=== PATIENT | female | born 1970 | race Caucasian/White ===

== ENCOUNTER → 2016-06-25 | Outpatient (CLI) | payer OTHER ==
--- NOTE | 2016-06-25 09:24 | MRI ---
EXAM DESCRIPTION: Brain MRI. CLINICAL HISTORY: Headache. COMPARISON: None. TECHNIQUE: Multiplanar, multisequence MR images were acquired with and without IV contrast. FINDINGS: The midline structures are unremarkable on today's study. Gradient sequences reveal no evidence of blood degradation products. There are small scattered foci of abnormal FLAIR hyperintensity throughout the bihemispheric deep and periventricular white matter, a nonspecific finding which can be seen in the setting of both chronic migraine headaches and mild microvascular disease. No intracranial mass effect, hydrocephalus, midline shift, hemorrhage, extra-axial fluid collection, abnormal vascular flow void, or restricted diffusion is seen. Calvarial signal is intact. Paranasal sinuses and the mastoid air cells appear clear. Orbits are within normal limits. IMPRESSION: There are a few T2 hyperintensities on today's study. These can be seen in setting of migraine headaches. No abnormal enhancement. No evidence of chronic microvascular ischemic disease or mass noted. Electronically signed by: Sergio Rios MD 06/25/2016 09:22
== END ==
LOC: MRI 07:47
PROVIDERS: ATTEND Family Medicine
DX: R51 Headache (principal)

== ENCOUNTER → 2016-07-11 | Outpatient (CLI) | payer OTHER | END | disposition home or self-care (01) | LOC: LAB.O 11:27 | PROVIDERS: ATTEND Psychiatry & Neurology Neurology | DX: M47.897 Other spondylosis, lumbosacral region (principal); F90.9 Attention-deficit hyperactivity disorder, unspecified type; M33.90 Dermatopolymyositis, unspecified, organ involvement unspecified; H46.9 Unspecified optic neuritis; M35.00 Sjogren syndrome, unspecified; M32.10 Systemic lupus erythematosus, organ or system involvement unspecified; M31.6 Other giant cell arteritis; M54.12 Radiculopathy, cervical region; M54.16 Radiculopathy, lumbar region ==

== ENCOUNTER → 2016-09-10 | Outpatient (CLI) | payer OTHER ==
--- NOTE | 2016-09-11 10:24 | MAM ---
History: Well woman exam. Date of exam: 09/10/2016 Services provided: Bilateral full field digital screening mammography. CAD, the images were reviewed with R2 computer aided detection. FINDINGS: Glandular tissue is scattered glandular pattern. Comparison with 2012 exam. No dominant mass, architectural distortion or clustered microcalcification. IMPRESSION: Benign exam Recommendation: Routine annual mammography BIRAD CATEGORY: 2 BENIGN FINDINGS NEGATIVE Electronically signed by: Bing Murrell MD 09/11/2016 10:22 AM CDT
== END | disposition home or self-care (01) ==
LOC: MAMMO 09:21
PROVIDERS: ATTEND Family Medicine
DX: Z12.31 Encounter for screening mammogram for malignant neoplasm of breast (principal)

== ENCOUNTER 2017-06-13 16:54 | Emergency (ER) | payer OTHER ==
[2017-06-13 17:12] VITALS: O2SAT 97
[2017-06-13 17:17] VITALS: TEMP 99.1
--- NOTE | 2017-06-13 17:22 | ED.PDOC ---
History of Present Illness - General Chief Complaint: Back Pain or Injury Stated Complaint: low back injury Time Seen by Provider: 06/13/17 17:18 Source: patient Exam Limitations: no limitations - History of Present Illness Initial Comments: Mansoor Gleason 46 y/o female seen today with low backpain when she tripped on her pig and fell on her back had taken muscle relaxant and placed heating pad but sharp left sided back pain pain got worse after she carried fire wood yesterday.No head/neck /hip pain.No bowel or bladder dysfunction Timing/Duration: days - 7 Quality/Severity: sharpness Back Pain Location: lumbar spine Back Pain Radiation: upper legs Method of Injury/Prior Injury: fell - on her back Allergies/Adverse Reactions: Allergies Sulfa Antibiotics Allergy (Verified 12/02/14 13:00) Vomitting makes her feel "like she wants to claw herself from the inside out" Home Medications: Ambulatory Orders Phentermine HCl 37.5 mg PO DAILY 12/02/14 Review of Systems - Review of Systems Constitutional: States: no symptoms reported EENTM: States: no symptoms reported Respiratory: States: no symptoms reported Cardiology: States: no symptoms reported Gastrointestinal/Abdominal: States: no symptoms reported Musculoskeletal: States: see HPI, back pain Past Medical History (General) - Patient Medical History Hx Stroke: No Hx Congestive Heart Failure: No Hx Diabetes: No 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 Surgical History: other - excision sweat glands - Vaccination History Hx Tetanus, Diphtheria Vaccination: Yes - 2011 Hx Influenza Vaccination: No - Social History Hx Tobacco Use: Yes - quit 09/2014 - Activities of Daily Living Grooming Ability: Independent Eating (Feeding) Ability: Independent Toileting Ability: Independent Family Medical History - Family History Mother Living Status: Still Living Hx Family Hypertension: Yes Hx Family Stroke: Yes Hx Family Diabetes: Yes Hx Family Cancer: Yes - Colon Physical Exam - Physical Exam General Appearance: Alert, Comfortable, No apparent distress Eyes, Ears, Nose, Throat Exam: normal ENT inspection Neck Exam: non-tender, normal alignment Cardiovascular/Respiratory: regular rate, rhythm, no M/R/G, normal peripheral pulses, normal breath sounds Peripheral Pulses: radial,right: 2+, radial,left: 2+ Gastrointestinal/Abdominal: non tender, soft, no organomegaly Back Exam: no vertebral tenderness, muscle spasm - lumbar muscle Extremity Exam: no evidence of injury, non-tender, no pedal edema Neurologic: no motor/sensory deficits, other - negative straight leg rasing test left leg Skin Exam: normal color, warm/dry Progress - Progress Progress: 06/13/17 17:25 Last Vital Signs Temp 99.1 F 06/13/17 17:09 Pulse 72 06/13/17 17:09 Resp 20 06/13/17 17:09 BP 128/85 06/13/17 17:09 Pulse Ox 97 06/13/17 17:09 Departure - Departure Clinical Impression: Muscle spasm Low back pain Qualifiers: Chronicity: unspecified Back pain laterality: left Sciatica presence: without sciatica Qualified Code(s): M54.5 - Low back pain Time of Disposition: 17:29 Disposition: Discharge to Home or Self Care Condition: Fair Departure Forms: ED Discharge - Pt. Copy, Patient Portal Self Enrollment Instructions: DI for Low Back Pain Referrals: KEVIN VIERA [Primary Care Provider] - 1-2 Weeks Home Medications: Ambulatory Orders Phentermine HCl 37.5 mg PO DAILY 12/02/14 Additional Instructions: Follow up with primary Md 06/16/2017 call for appointment;Continue with all home medications
[2017-06-13] MEDS ORDERED: ORPHENADRINE CITRATE 30 MG/ML AMP IM ONE (17:27)
[2017-06-13] MEDS ORDERED: KETOROLAC TROMETHAMINE INJ 30 MG/ML VIAL IM ONE (17:27)
[2017-06-13 18:26] VITALS: BP 134/80
== END 2017-06-13 18:20 | disposition home or self-care (01) ==
LOC: ER 16:54
DX: M54.5 Low back pain (principal); M62.838 Other muscle spasm
CPT/HCPCS: J1885; J2360

== ENCOUNTER 2019-03-01 21:26 | Emergency (ER) | payer BC ==
[2019-03-01] MEDS ORDERED: ASPIRIN TABLET 325 MG TAB PO ONE (21:49)
[2019-03-01] MEDS: HYDROcodone 7.5MG/APAP 325MG 1 EA TAB PO ONE ×2 (22:00→22:02)
[2019-03-01] MEDS ORDERED: ALUM & MAG HYDROX-SIMETHICONE 30 ML, LIDOCAINE VISCOUS 2% 15 ML PO ONE ×2 (22:44)
[2019-03-01] MEDS ORDERED: ALUM & MAG HYDROX-SIMETHICONE 30 ML UD ONE (22:48)
[2019-03-01] MEDS ORDERED: LIDOCAINE HCL 2% (MOUTH-THROAT) 15 ML UD ONE (22:48)
--- NOTE | 2019-03-01 23:05 | RAD ---
EXAM: Single view chest. INDICATION: Chest pain. COMPARISON: Chest x-ray: 08/12/2011. FINDINGS: Cardiac silhouette: Unremarkable. Merlyn: Unremarkable. Lobar consolidation: None. Pleural effusion: None. Pneumothorax: None. Other: None. Bones: Unremarkable. Other: None. IMPRESSION: 1. No acute cardiopulmonary process. Electronically signed by: Nabil Major MD 03/01/2019 11:04 PM CDT
--- NOTE | 2019-03-02 01:26 | ED.PDOC ---
History of Present Illness - General Chief Complaint: Chest Pain/NM Stated Complaint: chest pressure Time Seen by Provider: 03/01/19 21:29 Source: patient Exam Limitations: no limitations - History of Present Illness Initial Comments: the patient is a 48-year-old female presenting to the emergency room secondary to chest discomfort that started about 3 hours prior to arrival. Chest discomfort is a little more on the left than the right. It is largely reproducible with palpation of the pectoralis muscle. It has made a little worse with attempting to sit up as well as taking a deep breath. It is not worse with exertion otherwise. No shortness of breath. The patient has been having some chronic abdominal pain and did have a CT scan of her abdomen and pelvis done today but she does not know the result of it. It was done at an outside hospital who is unable to access her report overnight. No fevers. No vomiting. No syncope or near syncope. The patient is pleasant and cooperative and does not appear to be in distress. Timing/Duration: 1-3 hours Severity: mild Improving Factors: immobilization Worsening Factors: movement Associated Symptoms: chest pain Allergies/Adverse Reactions: Allergies Sulfa Antibiotics Allergy (Verified 12/02/14 13:00) Vomitting makes her feel "like she wants to claw herself from the inside out" Home Medications: Ambulatory Orders Aripiprazole 03/01/19 Cyclobenzaprine HCl [Flexeril] 10 mg PO 03/01/19 Escitalopram Oxalate 03/01/19 Levothyroxine Sodium 03/01/19 Meloxicam 03/01/19 Methotrexate Sodium [Methotrexate] 03/01/19 Propranolol HCl [Inderal] 20 mg PO 03/01/19 Vortioxetine HBr [Trintellix] 03/01/19 cloNAZepam [Klonopin] 03/01/19 Review of Systems - Review of Systems Constitutional: States: no symptoms reported EENTM: States: no symptoms reported Respiratory: States: no symptoms reported Cardiology: States: chest pain Gastrointestinal/Abdominal: States: no symptoms reported Genitourinary: States: no symptoms reported Musculoskeletal: States: see HPI Skin: States: no symptoms reported Neurological: States: anxiety Endocrine: States: no symptoms reported All other Systems: No Change from Baseline Past Medical History (General) - Patient Medical History Hx Stroke: No Hx Congestive Heart Failure: No Hx Diabetes: No 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 - Vaccination History Hx Tetanus, Diphtheria Vaccination: Yes - 2011 Hx Influenza Vaccination: No Hx Pneumococcal Vaccination: No - Social History Hx Tobacco Use: Yes - quit 09/2014 Family Medical History - Family History Mother Living Status: Still Living Hx Family Hypertension: Yes Hx Family Stroke: Yes Hx Family Diabetes: Yes Hx Family Cancer: Yes - Colon Physical Exam - Physical Exam General Appearance: Alert, Anxious, No apparent distress Eye Exam: bilateral normal Ears, Nose, Throat: hearing grossly normal, normal ENT inspection Neck: full range of motion, supple Respiratory: lungs clear, normal breath sounds, no respiratory distress, no accessory muscle use, other - chest wall is tender as above Cardiovascular/Chest: normal peripheral pulses, no edema, other - regular rate Peripheral Pulses: radial,right: 2+, radial,left: 2+ Gastrointestinal/Abdominal: soft, other - the patient does have a fused abdominal discomfort palpation. No real point tenderness. No rebound or peritoneal signs. 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 it seems to be more likely musculoskeletal given the physical exam. 2 sets of cardiac enzymes were performed and were negative. EKG and chest x-ray were reassuring. the patient is resting comfortably. She should follow-up with her primary care doctor towards the end of the week. The patient does have a history of significant reflux symptoms. She should consider taking a daily [id number] Nexium to help reduce long-term complications of this. the patient also needs to follow up with her primary care doctor tomorrow to obtain the results of her abdominal CT scan. We were unable to obtain results for her tonight. ER warnings were given for any worsening. 03/02/19 02:02 mandie hart [id number] 03/02/19 02:03 - Results/Orders Results/Orders: chest x-ray shows no acute processes. EKG shows normal sinus rhythm at 76 bpm. Normal axis. No ST segment or T-wave changes indicative of acute ischemia. Normal QT interval. Normal R-wave progression. Normal axis. 03/01/19 21:48 Telemetry .CONTINUOUS 03/01/19 22:00 EKG STAT 03/02/19 01:20 CARDIAC [employer] Stat Laboratory Results - last 24 hr 03/01/19 03/01/19 03/01/19 22:07 22:07 22:07 WBC 5.9 RBC 5.23 Hgb 11.2 L Hct 35.0 L MCV 67.1 L MCH 21.4 L MCHC 31.9 L RDW 16.0 H Plt Count 272 MPV 9.3 Absolute Neuts (auto) 3.20 Absolute Lymphs (auto) 2.00 Absolute Monos (auto) 0.40 Absolute Eos (auto) 0.20 Absolute Basos (auto) 0.10 Neutrophils % 54.6 Lymphocytes % 34.9 Monocytes % 6.1 Eosinophils % 3.4 Basophils % 1.0 Normal RBC Morphology 1+ovalocytes PT 9.6 INR 0.96 PTT (SP) 25.7 Sodium 141 Potassium 3.7 Chloride 106 Carbon Dioxide 25 Anion Gap 13.7 BUN 8 Creatinine 0.67 BUN/Creatinine Ratio 11.9 Random Glucose 111 H Serum Osmolality 280.3 Lactic Acid Calcium 9.4 Magnesium 2.1 Total Bilirubin 0.4 AST 22 ALT 31 Alkaline Phosphatase 82 Creatine Kinase 86 CK-MB (CK-2) 1.3 CK-MB (CK-2) % Not Reportable Troponin I < 0.02 B-Natriuretic Peptide 13.7 Serum Total Protein 7.2 Albumin 4.1 Globulin 3.1 Albumin/Globulin Ratio 1.3 Amylase 69 Lipase 36 Urine Color Urine Appearance Urine pH Ur Specific S[place] Urine Protein Urine Glucose (UA) Urine Ketones Urine Blood Urine Nitrite Urine Bilirubin Urine Urobilinogen Ur Leukocyte Esterase Urine RBC Urine WBC Ur Epithelial Cells Calcium Oxalate Crystal Urine Bacteria 03/01/19 03/01/19 03/02/19 22:07 22:40 01:20 WBC RBC Hgb Hct MCV MCH MCHC RDW Plt Count MPV Absolute Neuts (auto) Absolute Lymphs (auto) Absolute Monos (auto) Absolute Eos (auto) Absolute Basos (auto) Neutrophils % Lymphocytes % Monocytes % Eosinophils % Basophils % Normal RBC Morphology PT INR PTT (SP) Sodium Potassium Chloride Carbon Dioxide Anion Gap BUN Creatinine BUN/Creatinine Ratio Random Glucose Serum Osmolality Lactic Acid 1.5 Calcium Magnesium Total Bilirubin AST ALT Alkaline Phosphatase Creatine Kinase 79 CK-MB (CK-2) 1.1 CK-MB (CK-2) % Troponin I < 0.02 B-Natriuretic Peptide Serum Total Protein Albumin Globulin Albumin/Globulin Ratio Amylase Lipase Urine Color Yellow Urine Appearance Clear Urine pH 6.0 Ur Specific [place] 1.025 Urine Protein Negative Urine Glucose (UA) Negative Urine Ketones Negative Urine Blood Trace-intact H Urine Nitrite Negative Urine Bilirubin Negative Urine Urobilinogen 0.2 Ur Leukocyte Esterase Negative Urine RBC 0-1 Urine WBC 1-3 Ur Epithelial Cells 1-3 Calcium Oxalate Crystal 1+ Urine Bacteria Rare Departure - Departure Clinical Impression: Atypical chest pain Disposition: Discharge to Home or Self Care Condition: Fair Departure Forms: ED Discharge - Pt. Copy, Patient Portal Self Enrollment Instructions: Chest Pain That Is Not Caused by the Heart (DC) Referrals: KEVIN VIERA [Primary Care Provider] - 1-2 Weeks Home Medications: Ambulatory Orders Aripiprazole 03/01/19 Cyclobenzaprine HCl [Flexeril] 10 mg PO 03/01/19 Escitalopram Oxalate 03/01/19 Levothyroxine Sodium 03/01/19 Meloxicam 03/01/19 Methotrexate Sodium [Methotrexate] 03/01/19 Propranolol HCl [Inderal] 20 mg PO 03/01/19 Vortioxetine HBr [Trintellix] 03/01/19 cloNAZepam [Klonopin] 03/01/19 Additional Instructions: the patient is a 48-year-old female presenting to the emergency room secondary to atypical chest pain of 3 hours duration. it seems to be more likely musculoskeletal given the physical exam. 2 sets of cardiac enzymes were performed and were negative. EKG and chest x-ray were reassuring. the patient is resting comfortably. She should follow-up with her primary care doctor towards the end of the week. The patient does have a history of significant reflux symptoms. She should consider taking a daily [id number] Nexium to help reduce long-term complications of this. the patient also needs to follow up with her primary care doctor tomorrow to obtain the results of her abdominal CT scan. We were unable to obtain results for her tonight. ER warnings were given for any worsening.
[2019-03-02 02:10] VITALS: BP 106/71; TEMP 97.4; O2SAT 97
== END 2019-03-02 02:10 | disposition home or self-care (01) ==
LOC: ER 21:26
DX: R07.89 Other chest pain (principal); R10.9 Unspecified abdominal pain; G89.29 Other chronic pain; Z85.89 Personal history of malignant neoplasm of other organs and systems; Z79.899 Other long term (current) drug therapy; Z88.2 Allergy status to sulfonamides

== ENCOUNTER → 2019-03-18 | Outpatient (CLI) | payer BC | LOC: LAB.O 16:08 | PROVIDERS: ATTEND Family Medicine | DX: E03.9 Hypothyroidism, unspecified (principal) ==

== ENCOUNTER 2019-08-02 | Emergency (ER) | payer BC | END 2019-08-03 00:05 | disposition home or self-care (01) | DX: R07.1 Chest pain on breathing (principal); R05 Cough; R09.81 Nasal congestion; R06.00 Dyspnea, unspecified; Z87.891 Personal history of nicotine dependence; Z88.2 Allergy status to sulfonamides; Z79.899 Other long term (current) drug therapy | CPT/HCPCS: 36415; 71045; 80048; 82550; 82553; 83880; 84484; 85025; 85379; 85610; 85730; 93005; J7030 ==